=== PATIENT | female | born 1970 | race Two or more races ===

== ENCOUNTER 2023-06-14 12:26 | Inpatient (IN) | payer MEDICAID ==
[~2023-06-14] VITALS: Ht 152.4 cm; Wt 70.8 kg
[2023-06-14] MEDS ORDERED: Z GUARD REMEDY 4 OZ OINT TP PRN (18:30)
[2023-06-14] MEDS ORDERED: MAGNESIUM HYDROXIDE 30 ML UDC PO PRN (18:30)
[2023-06-14] MEDS ORDERED: ONDANSETRON HCL/PF 4 MG/2 ML VIAL IVP PRN (18:30)
[2023-06-14] MEDS ORDERED: MAG HYDROX/AL HYDROX/SIMETH 30 ML UDC PO PRN (18:30)
[2023-06-14] MEDS ORDERED: ACETAMINOPHEN 325 MG TABLET PO PRN (18:30)
[2023-06-14] MEDS ORDERED: HYDROCODONE/APAP 5/325MG TABLET PO PRN (18:30)
[2023-06-14] MEDS ORDERED: MORPHINE SULFATE INJ 2 MG/ML DISP.SYRIN IV PRN (18:30)
[2023-06-14] MEDS ORDERED: CLONIDINE HCL 0.1 MG TABLET PO PRN (18:30)
[2023-06-14] MEDS ORDERED: AMLO-212 PO (19:07)
[2023-06-14] MEDS ORDERED: LOSA50TA39 PO (19:07)
[2023-06-14] MEDS ORDERED: SIMV-46 PO (19:07)
[2023-06-14 19:23] VITALS: BP 175/100; TEMP 98.6; O2SAT 97
[2023-06-14 20:00] VITALS: BP 141/89; TEMP 98.1; O2SAT 98
[2023-06-14] MEDS: CEFTRIAXONE 1 G in IV D5W 50 ML IV SCH (20:01)
[2023-06-14] MEDS: IV NS 0.9% 1,000 ML IV PRN (20:05)
[2023-06-14] MEDS: AZITHROMYCIN 500 MG in IV D5W 250 ML IV SCH (21:10)
[2023-06-14 21:14] LABS: BASOPHILS % (AUTO) 0.2 % (0.0-2.0); BILIRUBIN,DIRECT 0.1 mg/dL (0.0-0.2); BILIRUBIN,TOTAL 0.4 mg/dL (0.2-1.0); CALCIUM, SERUM 8.4 mg/dL (8.5-10.1); CREATININE 0.8 mg/dL (0.6-1.3); EOSINOPHILS # (AUTO) 0.2 K/uL (0.0-0.7); EOSINOPHILS % (AUTO) 1.7 % (0.0-6.0); HEMATOCRIT 33 % (33-45); HEMOGLOBIN 10.8 g/dL (11.5-14.8); LYMPHOCYTES # (AUTO) 1.7 K/uL (0.8-4.8); LYMPHOCYTES % (AUTO) 18.7 % (20.0-44.0); MEAN CORPUSCULAR HEMOGLOBIN 26 PG (26.0-33.0); MEAN CORPUSCULAR HGB CONC 33 g/dl (31.0-36.0); MEAN CORPUSCULAR VOLUME 80 fL (82-100); MONOCYTES # (AUTO) 0.4 K/uL (0.1-1.30); MONOCYTES % (AUTO) 4.8 % (2.0-12.0); NEUTROPHILS # (AUTO) 6.7 K/uL (1.8-8.9); NEUTROPHILS % (AUTO) 74.6 % (43.0-81.0); PLATELET COUNT (AUTO) 331 K/uL (150-450); POTASSIUM 3.1 mmol/L (3.5-5.1); RED BLOOD CELL COUNT(AUTO) 4.17 MIL/uL (4.0-5.2); RED CELL DISTRIBUTION WIDTH 17.1 % (11.5-15.0); TOTAL PROTEIN, SERUM 7.7 g/dL (6.4-8.2)
[2023-06-15 04:00] VITALS: BP 130/85; TEMP 97.8; O2SAT 99
[2023-06-15 06:44] LABS: BASOPHILS % (AUTO) 0.4 % (0.0-2.0); EOSINOPHILS # (AUTO) 0.2 K/uL (0.0-0.7); EOSINOPHILS % (AUTO) 3.3 % (0.0-6.0); HEMATOCRIT 33 % (33-45); HEMOGLOBIN 10.7 g/dL (11.5-14.8); LYMPHOCYTES # (AUTO) 1.6 K/uL (0.8-4.8); LYMPHOCYTES % (AUTO) 26.1 % (20.0-44.0); MEAN CORPUSCULAR HEMOGLOBIN 26 PG (26.0-33.0); MEAN CORPUSCULAR HGB CONC 33 g/dl (31.0-36.0); MEAN CORPUSCULAR VOLUME 80 fL (82-100); MONOCYTES # (AUTO) 0.5 K/uL (0.1-1.30); MONOCYTES % (AUTO) 7.5 % (2.0-12.0); NEUTROPHILS # (AUTO) 3.9 K/uL (1.8-8.9); NEUTROPHILS % (AUTO) 62.7 % (43.0-81.0); PLATELET COUNT (AUTO) 317 K/uL (150-450); RED BLOOD CELL COUNT(AUTO) 4.13 MIL/uL (4.0-5.2); RED CELL DISTRIBUTION WIDTH 17.3 % (11.5-15.0); WHITE BLOOD COUNT (AUTO) 6.2 K/uL (4.3-11.0)
[2023-06-15 07:07] LABS: CALCIUM, SERUM 8.4 mg/dL (8.5-10.1); CREATININE 0.7 mg/dL (0.6-1.3); MAGNESIUM 2.3 mg/dL (1.8-2.4); PHOSPHORUS 3.2 mg/dL (2.5-4.9); POTASSIUM 3.6 mmol/L (3.5-5.1)
[2023-06-15 08:00] VITALS: BP 136/90; TEMP 97.6; O2SAT 98
[2023-06-15] MEDS: ENOXAPARIN SODIUM 40 MG/0.4 ML DISP.SYRIN SQ SCH (09:00)
[2023-06-15] MEDS: LOSARTAN POTASSIUM 50 MG TABLET PO SCH (09:05)
[2023-06-15] MEDS: AMLODIPINE BESYLATE 5 MG TABLET PO SCH ×2 (09:05→17:30)
[2023-06-15] MEDS: IV NS 0.9% 1,000 ML IV PRN (14:27)
[2023-06-15 16:00] VITALS: BP 133/78; TEMP 98.4; O2SAT 99
[2023-06-15 20:00] VITALS: BP 145/97; TEMP 98.2; O2SAT 98
[2023-06-15] MEDS: AZITHROMYCIN 500 MG in IV D5W 250 ML IV SCH (20:14)
[2023-06-15] MEDS: CEFTRIAXONE 1 G in IV D5W 50 ML IV SCH (20:14)
[2023-06-16 01:00] VITALS: BP 145/97; TEMP 98.2; O2SAT 98
[2023-06-16 04:00] VITALS: BP 145/97; TEMP 98.1; O2SAT 99
[2023-06-16 06:06] LABS: BASOPHILS % (AUTO) 0.5 % (0.0-2.0); EOSINOPHILS % (AUTO) 3.9 % (0.0-6.0); HEMATOCRIT 36 % (33-45); HEMOGLOBIN 11.6 g/dL (11.5-14.8); LYMPHOCYTES % (AUTO) 30.8 % (20.0-44.0); MEAN CORPUSCULAR HEMOGLOBIN 26 PG (26.0-33.0); MEAN CORPUSCULAR HGB CONC 32 g/dl (31.0-36.0); MEAN CORPUSCULAR VOLUME 80 fL (82-100); MONOCYTES % (AUTO) 9.2 % (2.0-12.0); NEUTROPHILS % (AUTO) 55.6 % (43.0-81.0); PLATELET COUNT (AUTO) 353 K/uL (150-450); RED BLOOD CELL COUNT(AUTO) 4.53 MIL/uL (4.0-5.2); RED CELL DISTRIBUTION WIDTH 17.2 % (11.5-15.0); WHITE BLOOD COUNT (AUTO) 5.9 K/uL (4.3-11.0)
[2023-06-16 06:07] LABS: EOSINOPHILS # (AUTO) 0.2 K/uL (0.0-0.7); LYMPHOCYTES # (AUTO) 1.8 K/uL (0.8-4.8); MONOCYTES # (AUTO) 0.5 K/uL (0.1-1.30); NEUTROPHILS # (AUTO) 3.3 K/uL (1.8-8.9)
[2023-06-16 07:24] LABS: CALCIUM, SERUM 8.6 mg/dL (8.5-10.1); CREATININE 0.7 mg/dL (0.6-1.3); PHOSPHORUS 3.8 mg/dL (2.5-4.9); POTASSIUM 3.4 mmol/L (3.5-5.1)
[2023-06-16] MEDS: AMLODIPINE BESYLATE 5 MG TABLET PO SCH (09:12)
[2023-06-16] MEDS: LOSARTAN POTASSIUM 50 MG TABLET PO SCH (09:14)
[2023-06-16] MEDS: ENOXAPARIN SODIUM 40 MG/0.4 ML DISP.SYRIN SQ SCH (09:41)
[2023-06-16 12:47] VITALS: BP 145/91; TEMP 98.1; O2SAT 99
[2023-06-16] MEDS ORDERED: AZITHROMYCIN 250 MG TABLET PO SCH (20:00)
== END 2023-06-16 12:35 | disposition home or self-care (01) | DRG 137 ==
LOC: MEDSG1 17:52
PROVIDERS: ADMIT Internal Medicine; ATTEND Internal Medicine
DX: U07.1 COVID-19 (principal); J96.01 Acute respiratory failure with hypoxia; J12.82 Pneumonia due to coronavirus disease 2019; I10 Essential (primary) hypertension; E66.9 Obesity, unspecified; G47.33 Obstructive sleep apnea (adult) (pediatric); Z68.30 Body mass index [BMI] 30.0-30.9, adult; E78.5 Hyperlipidemia, unspecified
CPT/HCPCS: 36415; 71045-TC; 80048-TC; 80076-TC; 83735-TC; 84100-TC; 85025-TC; 85378-TC; 86140-TC; A4223; G0378; J0456; J0696; J1650; J7030; J7060